=== PATIENT | male | born 1990 | race Caucasian/White ===

== ENCOUNTER 2019-06-21 04:55 | Emergency (ER) | payer MEDICAID ==
[~2019-06-21] VITALS: Ht 177.8 cm; Wt 6.8 kg
[~2019-06-21 04:55] MED LIST: IBUP-1542 PO; MAG355OR14 PO; METR500T PO
[2019-06-21 04:56] VITALS: Ht 177.8 cm; Wt 6.8 kg
[2019-06-21] MEDS ORDERED: BELLADONNA/PHENOBARBITAL TAB PO STA (07:56)
[2019-06-21] MEDS ORDERED: ONDANSETRON 4 MG INJ IV STA (07:56)
[2019-06-21] MEDS ORDERED: LACTATED RINGER'S 1,000 ML IV STA (07:56)
[2019-06-21] MEDS ORDERED: LIDOCAINE/MYLANTA 40 ML BTL PO STA (07:56)
[2019-06-21] MEDS ORDERED: KETOROLAC 15 MG INJ IV STA (07:56)
--- NOTE | 2019-06-21 08:19 | ERD ---
ER Documentation Chief Complaint Chief Complaint RECTAL BLEEDING XTODAY HPI This is a 29-year-old man complaining of diffuse abdominal pain and cramping since yesterday with tactile fevers at home and one episode of bloody diarrhea t his morning. He states that was mucus also mixed in with his stool, he has been having loose stools for about 1 day. He attributes his symptoms to eating a yogurt smoothie about 2 days ago prepared for him at a store. Patient denies anorexia, no chest pain or shortness of breath, no dysuria, no cough, no URI symptoms, no complaints of nausea or vomiting, no recent travel or antibiotic use ROS All systems reviewed and are negative except as per history of present illness. Medications Home Meds Active Scripts Mag Hydrox/Al Hydrox/Simeth (Maalox Advanced Suspension) 355 Ml Oral.susp, 2 TSP PO TID PRN for PAIN, #24 OZ Prov:HENRY JC MD 06/21/19 Ibuprofen* (Motrin*) 600 Mg Tab, 600 MG PO Q8 PRN for PAIN AND/OR INFLAMMATION, #30 TAB Prov:HENRY JC MD 06/21/19 Metronidazole* (Flagyl*) 500 Mg Tablet, 500 MG PO TID for 7 Days, TAB Prov:HENRY JC MD 06/21/19 Allergies Allergies: Coded Allergies: acetaminophen (Verified Allergy, Unknown, 06/21/19) Uncoded Allergies: TYELNOL (Allergy, Unknown, 06/21/19) PMhx/Soc Medical and Surgical Hx: pt denies Medical Hx, pt denies Surgical Hx Hx Alcohol Use: No Hx Substance Use: No Hx Tobacco Use: No Smoking Status: Never smoker FmHx Family History: No diabetes Physical Exam Vitals Vital Signs Date Temp Pulse Resp B/P (MAP) Pulse Ox O2 O2 Flow FiO2 Time Delivery Rate 06/21/19 97.9 76 18 111/72 99 Room Air 09:01 (85) 06/21/19 99.5 93 20 158/76 98 04:56 (103) Physical Exam GENERAL: Well-developed, well-nourished, well-hydrated, in no apparent distress, looks nontoxic in appearance CARDIAC: Regular rate and rhythm, no murmurs rubs or gallops LUNGS: Clear bilaterally no wheezing crackles or stridor ABDOMEN: Soft nontender, no guarding, no rigidity, no rebound, no psoas sign no obturator sign. SKIN: Warm and dry to touch, no abrasions, contusions, or hematomas, no lacerations, no ecchymosis, no target lesions, and without ulcers EXTREMITIES: No clubbing cyanosis or edema, calves are bilaterally symmetrical, no Homans sign, no popliteal cord sign. Distal pulses equal and bilateral PSYCH: Normal affect without agitation or irritability Result Diagram: 06/21/19 0810 06/21/19 0810 Results 24 hrs Laboratory Tests Test 06/21/19 08:10 White Blood Count 9.4 10^3/ul Red Blood Count 5.15 10^6/ul Hemoglobin 14.1 g/dl Hematocrit 43.5 % Mean Corpuscular Volume 84.5 fl Mean Corpuscular Hemoglobin 27.4 pg Mean Corpuscular Hemoglobin Concent 32.4 g/dl Red Cell Distribution Width 11.6 % Platelet Count 186 10^3/UL Mean Platelet Volume 10.1 fl Immature Granulocytes % 0.300 % Neutrophils % 82.4 % Lymphocytes % 9.0 % Monocytes % 7.7 % Eosinophils % 0.3 % Basophils % 0.3 % Nucleated Red Blood Cells % 0.0 /100WBC Immature Granulocytes # 0.030 10^3/ul Neutrophils # 7.7 10^3/ul Lymphocytes # 0.8 10^3/ul Monocytes # 0.7 10^3/ul Eosinophils # 0.0 10^3/ul Basophils # 0.0 10^3/ul Nucleated Red Blood Cells # 0.0 10^3/ul Sodium Level 138 mmol/L Potassium Level 4.1 mmol/L Chloride Level 102 mmol/L Carbon Dioxide Level 27 mmol/L Anion Gap 9 Blood Urea Nitrogen 10 mg/dl Creatinine 0.90 mg/dl Est Glomerular Filtrat Rate mL/min > 60 mL/min Glucose Level 102 mg/dl Calcium Level 9.6 mg/dl Total Bilirubin 0.5 mg/dl Direct Bilirubin 0.00 mg/dl Indirect Bilirubin 0.5 mg/dl Aspartate Amino Transf (AST/SGOT) 27 IU/L Alanine Aminotransferase (ALT/SGPT) 28 IU/L Alkaline Phosphatase 53 IU/L Total Protein 8.1 g/dl Albumin 4.8 g/dl Globulin 3.30 g/dl Albumin/Globulin Ratio 1.45 Lipase 55 U/L Current Medications Medications Dose Sig/Mayr Start Time Status Last (Trade) Ordered Route PRN Stop Time Admin Dose Reason Admin Lactated 1,000 ml @ Q1H STAT 06/21/19 DC 06/21/19 Ringer's 1,000 mls/hr IV 07:56 06/21/19 08:40 08:55 Ondansetron 4 mg ONCE STAT 06/21/19 DC HCl (Zofran IV 07:56 06/21/19 Inj) 07:57 40 ml ONCE STAT 06/21/19 DC 06/21/19 Miscellaneous PO 07:56 06/21/19 08:40 Medication 07:57 (Gi Cocktail (2)) Belladonna/ 2 tab ONCE STAT 06/21/19 DC 06/21/19 Phenobarbital PO 07:56 06/21/19 08:40 () 07:57 Ketorolac 15 mg ONCE STAT 06/21/19 DC Tromethamine IV 07:56 06/21/19 (Toradol) 07:57 Procedures/MDM IV line was established patient was placed on satellite project site monitor rhythm strip revealed a sinus rhythm at about 90 bpm with upright P and T waves. Patient was afebrile I administered LR 1 L IV, Toradol 15 mg IV, Zofran 4 mg IV, GI cocktail p.o. Patient refused CT scan of the abdomen pelvis, I did tell him acute appendicitis or acute diverticulitis could not be ruled out if he refuses CT imaging, he and his girlfriend discussed the issue and prefer not to undergo CT imaging and stated they would return if symptoms continued or got worse. CBC and electrolytes are normal, liver function tests were normal Differential diagnoses considered, included but not limited to acute coronary syndrome, pulmonary embolism, aortic dissection, abdominal aortic aneurysm, sepsis, stroke, meningitis, encephalitis, pneumonia, appendicitis, cholecystitis, bowel obstruction, pyelonephritis, nephrolithiasis, cystitis, as well as metabolic, hematologic, and electrolyte abnormalities. As well as abscess, cellulitis, fractures, and dislocations. Patient feels much better at this time, and vital signs are normal, symptoms have improved. I did give strict instructions to return to the ED if symptoms continue or worsen, patient will otherwise follow-up with primary care physician. Patient understood instructions and agreed to plan. Disclaimer: Inadvertent spelling and grammatical errors are likely due to EHR/dictation software use and do not reflect on the overall quality of patient care. Also, please note that the electronic time recorded on this note does not necessarily reflect the actual time of the patient encounter. Departure Diagnosis: Primary Impression: Infectious colitis Condition: Stable HENRY JC MD Jun 21, 2019 08:19
[2019-06-21 09:01] VITALS: BP 111/72; PULSE 76; RESP 18
== END 2019-06-21 12:53 | disposition home or self-care (01) ==
LOC: E/R 04:55
DX: A09 Infectious gastroenteritis and colitis, unspecified (principal)
CPT/HCPCS: 36415; 80053; 83690; 85025; J2405; J7120; Z7502; Z7610

== ENCOUNTER → 2019-06-25 | Emergency (ER) | payer MEDICAID ==
[~2019-06-25] VITALS: Ht 162.6 cm; Wt 67.0 kg
[2019-06-25 10:35] VITALS: BP 121/57; PULSE 57; RESP 18; Ht 162.6 cm; Wt 67.0 kg
--- NOTE | 2019-06-25 12:26 | ERD ---
ER Documentation Chief Complaint Chief Complaint SEEN HERE 0N / STILL HAS ABD DISCONFORT HPI 29-year-old male presenting with abdominal pain. Patient was seen here 3 days ago but denied a CT at that time. Patient is now requesting a CT given his continued abdominal pain. He has been taking antibiotics and Flagyl for his abdominal pain but the pain is still mildly there. He denies any chest pain or shortness of breath. Denies any vomiting or diarrhea. Medical history denies. Allergy to Tylenol. Social history smokes marijuana occasionally. ROS All systems reviewed and are negative except as per history of present illness. Medications Home Meds Active Scripts Mag Hydrox/Al Hydrox/Simeth (Maalox Advanced Suspension) 355 Ml Oral.susp, 2 TSP PO TID PRN for PAIN, #24 OZ Prov:HENRY JC MD 06/21/19 Ibuprofen* (Motrin*) 600 Mg Tab, 600 MG PO Q8 PRN for PAIN AND/OR INFLAMMATION, #30 TAB Prov:HENRY JC MD 06/21/19 Metronidazole* (Flagyl*) 500 Mg Tablet, 500 MG PO TID for 7 Days, TAB Prov:HENRY JC MD 06/21/19 Allergies Allergies: Coded Allergies: acetaminophen (Verified Allergy, Unknown, 06/21/19) Uncoded Allergies: TYELNOL (Allergy, Unknown, 06/21/19) PMhx/Soc Hx Alcohol Use: No Hx Substance Use: No Hx Tobacco Use: No Smoking Status: Never smoker FmHx Family History: No diabetes, No coronary disease, No other Physical Exam Vitals Vital Signs Date Temp Pulse Resp B/P (MAP) Pulse Ox O2 O2 Flow FiO2 Time Delivery Rate 06/25/19 98.1 57 18 121/57 99 10:35 (78) Physical Exam GENERAL: The patient is well-appearing, well-nourished, in no acute distress HEENT: Atraumatic. Conjunctivae are pink. Pupils equal, round, and reactive to light. There is no scleral icterus. Tympanic membranes clear bilaterally. Oropharynx clear. NECK: C-spine is soft and supple. There is no meningismus. There is no cervical lymphadenopathy. CHEST: Clear to auscultation bilaterally. There are no rales, wheezes or rhonchi. HEART: Regular rate and rhythm. No murmurs, clicks, rubs or gallops. ABDOMEN:Soft, nontender and nondistended. Good bowel sounds. No rebound or guarding. No gross peritonitis. No gross organomegaly or masses. Procedures/MDM DIAGNOSTIC IMAGING REPORT Patient: LESLY ROJO : 1990 Age: 29 Sex: M MR #: [id number] DOS: 06/25/19 1053 Ordering MD: NORAH PANTOJA PA-C Location: E Room/Bed: PROCEDURE: CT Abdomen and pelvis without contrast. CLINICAL INDICATION: Abdominal pain TECHNIQUE: CT scan of the abdomen and pelvis without contrast was performed on a multidetector high-resolution CT scan. . Coronal and sagittal reformatted images were obtained from the axial source images. Standard CT scan of the abdomen pelvis without contrast protocols were performed. The total exam CTDI equals 6.36 mGy and the total exam DLP equals 362.83 mGy-cm. One or more of the following dose reduction techniques were used: - Automated exposure control. - Adjustment of the mA and/or kV according to patient size. Use of iterative reconstruction technique. Dicom images are available COMPARISON: None. FINDINGS: The kidneys are normal in size without calcified calculi hydronephrosis or intra masses bilaterally. No evidence ureteral calcified calculi or dilatation. Mild circumferential urinary bladder wall thickening may be due to chronic obstruction. Cystitis cannot be excluded. Recommend clinical correlation. Prostate unremarkable. No evidence of intra-abdominal free air, free fluid, abscesses or lymphadenopathy. Stomach, small bowel, large bowel and appendix unremarkable. The spleen pancreas adrenal glands and gallbladder unremarkable. Unremarkable. No biliary ductal dilation. In the subcapsular superior right lobe of the liver is a 5 mm low density too small to characterize likely a cyst or possibly hemangioma. No other focal hepatic lesions. Lung bases unremarkable. Aorta unremarkable. Abdominal pelvic wall unremarkable. Osseous structures unremarkable without acute osseous findings are osteoblastic/osteolytic lesions. IMPRESSION: 1. No calcified urinary calculi or obstructive uropathy. 2. Mild circumferential urinary bladder wall thickening may be due to chronic obstruction. Cystitis cannot be excluded. Recommend clinical correlation. 3. No gastrointestinal disease. MDM: 29-year-old male presenting with abdominal pain. Patient CT is within normal limits and patient's pain is mild. Patient is told to continue taking medication as previously prescribed. I have low suspicion for acute abdominal e mergency and I do not feel antibiotics are continued medication is necessary. Patient is discharged with strict ER precautions. All questions answered at discharge Departure Diagnosis: Primary Impression: Abdominal pain Condition: Stable Patient Instructions: Abdominal Pain Referrals: [facility] YOU HAVE RECEIVED A MEDICAL SCREENING EXAM AND THE RESULTS INDICATE THAT YOU DO NOT HAVE A CONDITION THAT REQUIRES URGENT TREATMENT IN THE EMERGENCY DEPARTMENT. FURTHER EVALUATION AND TREATMENT OF YOUR CONDITION CAN WAIT UNTIL YOU ARE SEEN IN YOUR DOCTORS OFFICE WITHIN THE NEXT 1-2 DAYS. IT IS YOUR RESPONSIBILITY TO MAKE AN APPOINTMENT FOR FOLOW-UP CARE. IF YOU HAVE A PRIMARY DOCTOR --you should call your primary doctor and schedule an appointment IF YOU DO NOT HAVE A PRIMARY DOCTOR YOU CAN CALL OUR PHYSICIAN REFERRAL HOTLINE AT IF YOU CAN NOT AFFORD TO SEE A PHYSICIAN YOU CAN CHOSE FROM THE FOLLOWING [facility] [address] [facility]. [facility] [address] [facility] [facility] [address] [facility] [address] [facility] [address] [facility] [address] [facility] [address] [facility] [employer] [address] Additional Instructions: FOLLOW UP WITH YOUR PRIMARY CARE PHYSICIAN TOMORROW.Return to this facility if you are not improving as expected. SANDIP PANTOJA PA-C Jun 25, 2019 12:26
== END | disposition home or self-care (01) ==
LOC: FTE 10:31
DX: R10.9 Unspecified abdominal pain (principal)
CPT/HCPCS: 74176; Z7502